=== PATIENT | female | born 1970 | race Caucasian/White ===

== ENCOUNTER 2016-12-11 19:37 | Emergency (ER) | payer SELFPAY | END 2016-12-11 21:13 | disposition home or self-care (01) | LOC: D.ER 19:37 | DX: E11.65 Type 2 diabetes mellitus with hyperglycemia (principal) ==

== ENCOUNTER 2017-04-17 23:48 | Emergency (ER) | payer SELFPAY | END 2017-04-18 01:45 | disposition home or self-care (01) | LOC: D.ER 23:48 | DX: G89.18 Other acute postprocedural pain (principal); E11.9 Type 2 diabetes mellitus without complications; F17.200 Nicotine dependence, unspecified, uncomplicated ==

== ENCOUNTER 2017-04-22 12:30 | Emergency (ER) | payer OTHER ==
[2017-04-22 14:07] LABS: BASOPHILS 0.4 % (0-2); EOSINOPHILS 6.1 % (0-7); HEMATOCRIT 41.3 % (36.0-48.0); HEMOGLOBIN 14.4 g/dL (12-16); IMMATURE GRANULOCYTES 0.3 % (0-5); LYMPHOCYTES 41.6 % (15-50); MCH 31.4 pg (26.0-34.0); MCHC 34.9 g/dL (31.0-37.0); MEAN PLATELET VOLUME 10.7 fL (7.4-10.4); MONOCYTES 7.7 % (2-11); NEUTROPHILS 43.9 % (40-80); PLATELET COUNT 142 10x3/uL (130-400); RBC 4.59 10x6/uL (4.00-5.40); RDW 12.2 % (11.5-14.5); WBC 7.2 10x3/uL (4.8-10.8)
[2017-04-22 14:22] LABS: ALBUMIN 3.3 g/dL (3.4-5.0); ALKALINE PHOSPHATASE 106 U/L (46-116); ALT (SGPT) 228 U/L (10-68); BILIRUBIN - TOTAL 0.27 mg/dL (0.2-1.3); CALC OSMOLALITY 278 mosm/kg (275-300); CALCIUM 9.3 mg/dL (8.5-10.1); CARBON DIOXIDE 26.9 mmol/L (21.0-32.0); CHLORIDE - SERUM 102 mmol/L (98-107); CREATININE - SERUM 0.8 mg/dL (0.6-1.3); GLUCOSE 187 mg/dL (74-106); POTASSIUM - SERUM 4.4 mmol/L (3.5-5.1); PROTEIN - SERUM 7.5 g/dL (6.4-8.2); SODIUM 137 mmol/L (136-145); UREA NITROGEN 13 mg/dL (7-18); eGFR NON AFRICAN AMERICAN 81 mL/min (90-120)
[2017-04-22 14:33] LABS: APTT 32.9 SECONDS (22.8-39.4); INR 0.94 (0.85-1.17); PROTIME 12.4 SECONDS (11.6-15.0)
[2017-04-22 14:44] LABS: APPEARANCE CLEAR (CLEAR); COLOR YELLOW (YELLOW); GLUCOSE 100 mg/dL (NEGATIVE); KETONE NEGATIVE (NEGATIVE); NITRITE NEGATIVE (NEGATIVE); PROTEIN NEGATIVE (NEGATIVE); UROBILINOGEN NORMAL (NORMAL)
[2017-04-22 14:45] LABS: BILIRUBIN NEGATIVE (NEGATIVE)
[2017-04-22 14:52] LABS: HCG URINE NEGATIVE (NEGATIVE)
== END 2017-04-22 17:48 | disposition home or self-care (01) ==
LOC: D.ER 12:30
PROVIDERS: Emergency Medicine
DX: J20.9 Acute bronchitis, unspecified (principal); R06.00 Dyspnea, unspecified; F17.200 Nicotine dependence, unspecified, uncomplicated

== ENCOUNTER 2017-06-26 19:23 | Emergency (ER) | payer OTHER | END 2017-06-26 20:35 | disposition home or self-care (01) | LOC: D.ER 19:23 | DX: B34.9 Viral infection, unspecified (principal); E11.9 Type 2 diabetes mellitus without complications; F17.200 Nicotine dependence, unspecified, uncomplicated ==

== ENCOUNTER 2017-09-16 06:40 | Day surgery (SDC) | payer OTHER ==
[2017-09-15 11:17] LABS: ALBUMIN 3.9 g/dL (3.4-5.0); ANION GAP 14.3 mmol/L (8-16); BILIRUBIN - TOTAL 0.3 mg/dL (0.2-1.3); CALCIUM 9.2 mg/dL (8.5-10.1); CARBON DIOXIDE 26.7 mmol/L (21.0-32.0); CREATININE - SERUM 0.9 mg/dL (0.6-1.3); HEMATOCRIT 44.4 % (36.0-48.0); HEMOGLOBIN 15.4 g/dL (12-16); MCH 31.3 pg (26.0-34.0); MCHC 34.7 g/dL (31.0-37.0); MCV 90.2 fL (80.0-100.0); MEAN PLATELET VOLUME 9.9 fL (7.4-10.4); PROTEIN - SERUM 8.7 g/dL (6.4-8.2); RBC 4.92 10x6/uL (4.00-5.40); RDW 12.6 % (11.5-14.5); WBC 8.2 10x3/uL (4.8-10.8)
[2017-09-15 11:25] LABS: APTT 32.7 SECONDS (22.8-39.4); INR 1.07 (0.85-1.17); PROTIME 13.5 SECONDS (11.6-15.0)
[~2017-09-16] VITALS: Ht 165.1 cm; Wt 86.2 kg
--- NOTE | ~2017-09-16 | OP ---
PATIENT NAME: MARIAM POLLOCK MEDICAL RECORD: [id number] :66 LOCATION:D.OPS ADMISSION DATE: SURGEON: DIPAK TRACY MD DATE OF OPERATION: 09/16/2017 PREOPERATIVE DIAGNOSIS: Lateral meniscus tear with patellofemoral syndrome of the right knee. POSTOPERATIVE DIAGNOSIS: Lateral meniscus tear with patellofemoral syndrome of the right knee. PROCEDURE: 1. Arthroscopic partial lateral meniscectomy. 2. Arthroscopic lateral release. SURGEON: Dipak Tracy MD ANESTHESIA: General. INTRAOPERATIVE COMPLICATIONS: None. SUMMARY OF PATHOLOGIC FINDINGS: The patient had a small tear of the lateral meniscus, can be certain that this was causing the patient's large lateral gastroc cyst that was planned for resection day; however, it ruptured in the preoperative period and the gastroc defamation essentially normalized. Therefore, we proceeded with the scope with a lateral release and partial lateral meniscectomy. OPERATIVE SUMMARY IN DETAIL: After obtaining the appropriate preoperative orthopedic surgery consent as well as anesthetic consultation, evaluation and clearance, the patient was brought to the operating room and placed on the operating table in supine position. After general laryngeal mask airway was administered, tourniquet was placed about the proximal aspect of the right lower extremity. Right lower extremity was then prepped and draped in a routine sterile fashion. The leg was elevated and exsanguinated, tourniquet was inflated to 350 mmHg. Routine inferolateral portal was established followed by superomedial portal and inferomedial portal. Diagnostic arthroscopy revealed the above findings. 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 Leg was placed in a [id number] position. Arthroscopic resector was utilized to remove the small radial oblique tear. The meniscus was probed and found to be stable. Attention was then turned to the patellofemoral joint. A hook tip Nunn tissue ablation system was utilized to release the lateral retinaculum from just inferior to the vastus lateralis to the inferior lateral portal. Having completed this, the knee was insufflated with 30 cc of 0.25% Marcaine with epinephrine and 40 mg of Depo-Medrol. Arthroscopy portals were closed in routine interrupted fashion using 4-0 Prolene. Sterile dressings were applied. The patient was awakened and taken to the recovery room in stable condition. All final needle and sponge counts were correct. TRANSINT:[id number] Voice Confirmation ID: [id number] DOCUMENT ID: [id number] OPERATIVE REPORT [id number] MARIAM POLLOCK MD, DIPAK BARRERA at 1401 CC: [id number] DICTATION DATE: 09/16/17 1024 CANCER GENETIC COUNSELOR: 09/16/17 1043 [facility] [place] [id number] [place] [id number]
[~2017-09-16 06:40] MED LIST: GLUCOPHAGE500 MG PO; HYDROCODONE-APA1 TAB PO
[2017-09-16 08:02] VITALS: BP 106/51; Ht 165.1 cm; Wt 86.2 kg
[2017-09-16] MEDS ORDERED: HYDROCODONE-APA1 TAB PO (10:21)
== END 2017-09-16 12:10 ==
LOC: D.OPS 06:40 → D.PAN 13:30 → D.OPS 13:30
PROVIDERS: Anesthesiology
DX: S83.281A Other tear of lateral meniscus, current injury, right knee, initial encounter (principal); M22.2X1 Patellofemoral disorders, right knee; F17.200 Nicotine dependence, unspecified, uncomplicated; E11.9 Type 2 diabetes mellitus without complications; Z01.812 Encounter for preprocedural laboratory examination

== ENCOUNTER 2017-10-08 09:49 | Day surgery (SDC) | payer OTHER ==
[~2017-10-08] VITALS: Ht 165.1 cm; Wt 86.2 kg
--- NOTE | ~2017-10-08 | OP ---
PATIENT NAME: MARIAM POLLOCK MEDICAL RECORD: [id number] :66 LOCATION:D.OPS ADMISSION DATE: SURGEON: DIPAK TRACY MD DATE OF OPERATION: 10/08/2017 PREOPERATIVE DIAGNOSIS: Parameniscal cyst of the right knee. POSTOPERATIVE DIAGNOSIS: Parameniscal cyst of the right knee. PROCEDURES: 1. Right knee arthroscopy. 2. Excision of parameniscal cyst. SURGEON: Dipak Tracy MD ANESTHESIA: General. INTRAOPERATIVE COMPLICATIONS: None. SUMMARY OF PATHOLOGIC FINDINGS: The patient had previously ruptured the cyst that returned. Arthroscopy was to establish that the previously seen meniscal tear was no longer prevalent. After arthroscopy, open incision of the parameniscal cyst on the posterior aspect of the head of the fibula was done. OPERATIVE SUMMARY IN DETAIL: After obtaining the appropriate preoperative orthopedic surgery consent as well as anesthetic consultation, evaluation, and clearance, the patient was brought to the operating room and placed on the operating table in supine position. After adequate general laryngeal mask airway was administered, tourniquet was placed about the proximal aspect of the right lower extremity. Right lower extremity was prepped and draped in routine sterile fashion. Leg was elevated, exsanguinated and tourniquet was inflated to 350 mmHg. Routine inferolateral portal was established followed by superior medial portal and inferomedial portal. Diagnostic arthroscopy of the right knee where prior partial meniscectomy had been achieved. At this point, arthroscopy was terminated. A small incision was made over the proximal aspect of the lateral portion of the gastroc. Care was taken to avoid the peroneal nerve. Dissection was gently carried down to the posterior aspect of the fibula where the cyst was seen on MRI. Cyst was identified. Dissection was carried out around the cyst. Ultimately, the cyst was drained and the cyst capsule was removed. Having completed this, the wound was irrigated and closed with #1 Vicryl, 2-0 Vicryl, and 4-0 Prolene. The arthroscopic portals were likewise closed with 4-0 Prolene. Sterile dressings were applied. Tourniquet was deflated. The patient was awakened and taken to recovery in stable condition. All final needle and sponge counts were correct. TRANSINT:[id number] Voice Confirmation ID: [id number] DOCUMENT ID: [id number] OPERATIVE REPORT [id number] ADEN MD, DIPAK BARRERA at 1019 CC: [id number] DICTATION DATE: 11/05/17823 DRIER: 11/05/17 1440 [facility] 10/08/17 [place] [id number] [place] [id number]
[2017-10-08 10:52] VITALS: BP 101/52; Ht 165.1 cm; Wt 86.2 kg
[2017-10-08 11:30] LABS: HEMATOCRIT 41.3 % (36.0-48.0); HEMOGLOBIN 14.7 g/dL (12-16); MCH 31.6 pg (26.0-34.0); MCHC 35.6 g/dL (31.0-37.0); MCV 88.8 fL (80.0-100.0); MEAN PLATELET VOLUME 10.7 fL (7.4-10.4); RBC 4.65 10x6/uL (4.00-5.40); RDW 12.5 % (11.5-14.5); WBC 7.9 10x3/uL (4.8-10.8)
[2017-10-08 11:39] LABS: CALC OSMOLALITY 274 mosm/kg (275-300); CALCIUM 9.2 mg/dL (8.5-10.1); CARBON DIOXIDE 27.9 mmol/L (21.0-32.0); CHLORIDE - SERUM 102 mmol/L (98-107); CREATININE - SERUM 0.7 mg/dL (0.6-1.3); GLUCOSE 155 mg/dL (74-106); POTASSIUM - SERUM 5.3 mmol/L (3.5-5.1); SODIUM 135 mmol/L (136-145); UREA NITROGEN 18 mg/dL (7-18); eGFR NON AFRICAN AMERICAN > 90 mL/min (90-120)
[2017-10-08] MEDS ORDERED: HYDROCODONE-APA1 TAB PO (15:15)
== END 2017-10-08 16:45 | disposition home or self-care (01) ==
LOC: D.OPS 09:49 → D.PAN 14:45 → D.OPS 16:45
PROVIDERS: Anesthesiology
DX: M67.40 Ganglion, unspecified site (principal); M22.2X9 Patellofemoral disorders, unspecified knee; M25.561 Pain in right knee; F17.200 Nicotine dependence, unspecified, uncomplicated; E11.9 Type 2 diabetes mellitus without complications; Z01.812 Encounter for preprocedural laboratory examination

== ENCOUNTER → 2018-02-08 16:01 | Outpatient (CLI) | payer OTHER ==
[2017-10-08 10:52] VITALS: BMI 31.6
== END | disposition home or self-care (01) ==
LOC: D.MRI 16:01
DX: R22.41 Localized swelling, mass and lump, right lower limb (principal)

== ENCOUNTER 2018-02-22 10:40 | Day surgery (SDC) | payer OTHER ==
[~2018-02-22] VITALS: Ht 165.1 cm; Wt 91.6 kg
--- NOTE | ~2018-02-22 | OP ---
PATIENT NAME: MARIAM POLLOCK MEDICAL RECORD: [id number] :66 LOCATION:D.OPS ADMISSION DATE: SURGEON: DIPAK TRACY MD DATE OF OPERATION: 02/22/2018 PREOPERATIVE DIAGNOSIS: Recurrent meniscal cyst of the right knee. POSTOPERATIVE DIAGNOSES: Recurrent meniscal cyst of the right knee, lateral meniscus tear. PROCEDURE: 1. Open removal of lateral parameniscal cyst. 2. Right knee arthroscopy with arthroscopic partial lateral meniscectomy. SURGEON: Dipak Tracy MD ANESTHESIA: General. INTRAOPERATIVE COMPLICATIONS: None. SUMMARY OF PATHOLOGIC FINDINGS: Although the patient had a previous cyst, it was underneath the fibula more distally. This cyst seemed to arise directly from the lateral joint line and upon dissection, it had a small stalk and at this arthroscopy, the patient did have a small lateral meniscus tear. OPERATIVE SUMMARY IN DETAIL: After obtaining the appropriate preoperative orthopedic surgery consent as well as anesthetic consultation, evaluation, and clearance, the patient was brought to the operating room and placed in the operating table in supine position. After adequate general laryngeal mask airway was administered, tourniquet was placed about the proximal aspect of the right lower extremity. Right lower extremity was then prepped and draped in routine sterile fashion. The leg was elevated and exsanguinated, tourniquet inflated to 350 mmHg. Care was taken to not rupture the meniscal cyst with exsanguination. A small incision was made over the lateral joint line in line with the lateral joint line, taken down to the parameniscal cyst, which was dissected free and the small stalk was seen and evaluated. The meniscal cyst was removed and sent for permanent pathology. At this point, arthroscopy was established in the knee. Ironically, there was no flow through even under pressure. However, the patient was seen to have a lateral meniscus tear undersurface. This was debrided with the meniscal resector, but the lateral meniscus was stable. Having completed this, #1 Vicryl was used to oversew the stalk of the meniscal repair on the lateral capsule. Having completed this, arthroscopy portals were closed in routine interrupted fashion. Please note, the knee was insufflated with 30 cc of 0.25% Marcaine with epinephrine and 40 mg of Depo-Medrol. Arthroscopy portals having been closed, sterile dressings were applied. Tourniquet was deflated. The patient was awakened and taken to the recovery room in stable condition. All final needle and sponge counts were correct. TRANSINT:[id number] Voice Confirmation ID: [id number] DOCUMENT ID: [id number] OPERATIVE REPORT [id number] MARIAM POLLOCK MD, DIPAK BARRERA at 1358 CC: [id number] DICTATION DATE: 02/23/18 09 CASH CONTROLLER: 02/23/18 1146 [facility] 02/22/[address] [address]
[2018-02-22 11:44] LABS: HEMATOCRIT 43.9 % (36.0-48.0); HEMOGLOBIN 15.3 g/dL (12-16); MCH 31.8 pg (26.0-34.0); MCHC 34.9 g/dL (31.0-37.0); MCV 91.3 fL (80.0-100.0); MEAN PLATELET VOLUME 11.2 fL (7.4-10.4); RBC 4.81 10x6/uL (4.00-5.40); WBC 8.8 10x3/uL (4.8-10.8)
[2018-02-22 12:11] LABS: CALC OSMOLALITY 272 mosm/kg (275-300); CALCIUM 8.7 mg/dL (8.5-10.1); CARBON DIOXIDE 28.5 mmol/L (21.0-32.0); CHLORIDE - SERUM 102 mmol/L (98-107); CREATININE - SERUM 0.8 mg/dL (0.6-1.3); GLUCOSE 112 mg/dL (74-106); POTASSIUM - SERUM 4.8 mmol/L (3.5-5.1); SODIUM 136 mmol/L (136-145); UREA NITROGEN 12 mg/dL (7-18); eGFR NON AFRICAN AMERICAN 81 mL/min (90-120)
[2018-02-22 12:28] VITALS: BP 104/63; Ht 165.1 cm; Wt 91.6 kg
[2018-02-22] MEDS ORDERED: HYDROCODONE-APA1 TAB PO (17:09)
== END 2018-02-22 18:20 | disposition home or self-care (01) ==
LOC: D.OPS 10:40 → D.PAN 13:00 → D.OPS 18:20
PROVIDERS: Anesthesiology
DX: M23.061 Cystic meniscus, other lateral meniscus, right knee (principal); S83.281A Other tear of lateral meniscus, current injury, right knee, initial encounter; Z01.812 Encounter for preprocedural laboratory examination

== ENCOUNTER 2018-07-07 14:09 | Emergency (ER) | payer OTHER ==
[~2018-07-07] VITALS: Ht 165.1 cm; Wt 88.2 kg
[2018-07-07 14:25] VITALS: Ht 165.1 cm; Wt 88.2 kg
[2018-07-07] MEDS ORDERED: PRAVACHOL20 MG PO (14:27)
[2018-07-07 15:02] LABS: BASOPHILS 0.4 % (0-2); EOSINOPHILS 2.5 % (0-7); HEMATOCRIT 44.3 % (36.0-48.0); HEMOGLOBIN 15.5 g/dL (12-16); IMMATURE GRANULOCYTES 0.3 % (0-5); LYMPHOCYTES 39.1 % (15-50); MCH 32.1 pg (26.0-34.0); MCV 91.7 fL (80.0-100.0); MEAN PLATELET VOLUME 10.1 fL (7.4-10.4); MONOCYTES 7.6 % (2-11); NEUTROPHILS 50.1 % (40-80); PLATELET COUNT 171 10x3/uL (130-400); RBC 4.83 10x6/uL (4.00-5.40); RDW 12.9 % (11.5-14.5); WBC 9.1 10x3/uL (4.8-10.8)
[2018-07-07 15:32] LABS: ALBUMIN 3.8 g/dL (3.4-5.0); ALKALINE PHOSPHATASE 76 U/L (46-116); ALT (SGPT) 26 U/L (10-68); BILIRUBIN - TOTAL 0.38 mg/dL (0.2-1.3); CALC OSMOLALITY 277 mosm/kg (275-300); CARBON DIOXIDE 22.8 mmol/L (21.0-32.0); CHLORIDE - SERUM 102 mmol/L (98-107); CREATININE - SERUM 0.8 mg/dL (0.6-1.3); GLUCOSE 133 mg/dL (74-106); POTASSIUM - SERUM 4.1 mmol/L (3.5-5.1); PROTEIN - SERUM 8.1 g/dL (6.4-8.2); SODIUM 137 mmol/L (136-145); UREA NITROGEN 19 mg/dL (7-18); eGFR NON AFRICAN AMERICAN 81 mL/min (90-120)
[2018-07-07 15:37] LABS: CKMB 0.3 U/L (0.0-3.6); CREATINE KINASE 70 UL (21-215); MAGNESIUM - SERUM 2.1 mg/dL (1.8-2.4)
[2018-07-07 15:41] LABS: TROPONIN-I < 0.017 ng/mL (0.000-0.060)
[2018-07-07 15:46] LABS: APTT 29.6 SECONDS (22.8-39.4); INR 1.02 (0.85-1.17); PROTIME 12.9 SECONDS (11.6-15.0)
[2018-07-07 15:47] LABS: D-DIMER-QUANTITATIVE < 0.27 ug/mLFEU (0.20-0.54)
[2018-07-07] MEDS ORDERED: NORCO 7.5/325 T1 TA1 PO (18:25)
[2018-07-07 18:47] VITALS: BP 128/82
== END 2018-07-07 18:48 | disposition home or self-care (01) ==
LOC: D.ER 14:09
PROVIDERS: Family Medicine
DX: R07.81 Pleurodynia (principal); E11.9 Type 2 diabetes mellitus without complications; Z86.19 Personal history of other infectious and parasitic diseases; F17.200 Nicotine dependence, unspecified, uncomplicated

== ENCOUNTER 2019-06-20 05:30 | Day surgery (SDC) | payer BC ==
[2019-06-17 09:54] LABS: ANION GAP 13.2 mmol/L (8-16); CALCIUM 9.2 mg/dL (8.5-10.1); CARBON DIOXIDE 24.2 mmol/L (21.0-32.0); POTASSIUM - SERUM 4.4 mmol/L (3.5-5.1)
[2019-06-17 10:56] LABS: HEMATOCRIT 45.7 % (36.0-48.0); HEMOGLOBIN 15.8 g/dL (12-16); MCH 32.5 pg (26.0-34.0); MCHC 34.6 g/dL (31.0-37.0); MEAN PLATELET VOLUME 10.8 fL (7.4-10.4); RBC 4.86 10x6/uL (4.00-5.40); RDW 12.8 % (11.5-14.5); WBC 8.1 10x3/uL (4.8-10.8)
[~2019-06-20] VITALS: Ht 165.1 cm; Wt 86.2 kg
[~2019-06-20 05:30] MED LIST changes: +NORCO 7.5/325 T1 TA1 PO; +PRAVACHOL20 MG PO
[2019-06-20 06:36] VITALS: BP 110/70; Ht 165.1 cm; Wt 86.2 kg
[2019-06-20] MEDS ORDERED: DILAUDID2 MG PO (08:26)
--- NOTE | 2019-06-20 09:19 | NUR ---
0915 [facility] AT [facility] DIET SERVED.
--- NOTE | 2019-06-20 14:02 | OP ---
PATIENT NAME: MARIAM WOOTEN MEDICAL RECORD: [id number] :66 LOCATION:D.OPS ADMISSION DATE: SURGEON: DIPAK TRACY MD DATE OF OPERATION: 06/20/2019 PREOPERATIVE DIAGNOSIS: 1. 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 2. Trigger thumb of the left upper extremity. POSTOPERATIVE DIAGNOSES: 1. 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 2. Trigger thumb of the left upper extremity. PROCEDURES: 1. De Quervain release, left wrist. 2. Left trigger thumb release. SURGEON: Dipak Tracy MD ANESTHESIA: General. INTRAOPERATIVE COMPLICATIONS: None. SUMMARY OF PATHOLOGIC FINDINGS: The patient did have on both locations tight extensor retinaculum and flexor retinaculum respectively. A nodularity was found in the thumb tendon, but no tearing. Synovitis was found in the de Quervain stenosing site. OPERATIVE SUMMARY IN DETAIL: After obtaining the appropriate preoperative orthopedic surgery consent as well as anesthetic consultation, evaluation and clearance, the patient was brought to the operating room and placed on the operating table in supine position. After adequate general laryngeal mask airway was administered, tourniquet was placed in the proximal aspect of the left upper extremity. Left upper extremity was then prepped and draped in routine sterile fashion. At this point, the appropriate timeout was taken and agreed upon by all. Arm was elevated and exsanguinated. Tourniquet was inflated to 250 mmHg. An incision was made first over the radial styloid, taken down to the level of the extensor retinaculum over the radial styloid, supraspinatus. The radial nerve was identified and protected. The incision was then made along the compartment and it was released in its entirety. Synovitis was noted and gently excised. Attention was at this point turned to the base of the left thumb. A small incision was made over the bonita. Digital nerves were protected and the A1 bonita was released in its entirety. At this point, the wounds were closed by Cipriano damian using Prolene in a simple interrupted fashion. The areas were both infiltrated with 0.25% Marcaine plain. Sterile dressings were applied. Tourniquet was deflated. The patient was awakened and taken to recovery room in stable condition. All final needle and sponge counts were correct. TRANSINT:[id number] Voice Confirmation ID: [id number] DOCUMENT ID: [id number] OPERATIVE REPORT [id number] MARIAM WOOTEN MD, DIPAK BARRERA at 1402 CC: [id number] DICTATION DATE: 06/20/19828 PROFILING MACHINE OPERATOR: 06/20/19 1132 [facility] 06/20/19 [place] [id number]
== END 2019-06-20 10:15 | disposition home or self-care (01) ==
LOC: D.OPS 05:30 → D.PAN 07:30 → D.OPS 07:30
PROVIDERS: Anesthesiology; ATTEND Orthopaedic Surgery
DX: M65.4 Radial styloid tenosynovitis [de Quervain] (principal); M65.312 Trigger thumb, left thumb

== ENCOUNTER 2020-02-03 10:10 | Emergency (ER) | payer OTHER ==
[~2020-02-03] VITALS: Ht 165.1 cm; Wt 93.6 kg
[~2020-02-03 10:10] MED LIST changes: +DILAUDID2 MG PO
[2020-02-03 10:19] VITALS: Ht 165.1 cm; Wt 93.6 kg
[2020-02-03 10:36] LABS: BASOPHILS 0.3 % (0-2); EOSINOPHILS 1.8 % (0-7); HEMATOCRIT 47.5 % (36.0-48.0); HEMOGLOBIN 16.2 g/dL (12-16); IMMATURE GRANULOCYTES 0.2 % (0-5); LYMPHOCYTES 28.5 % (15-50); MCHC 34.1 g/dL (31.0-37.0); MCV 93.9 fL (80.0-100.0); MEAN PLATELET VOLUME 10.2 fL (7.4-10.4); MONOCYTES 5.5 % (2-11); NEUTROPHILS 63.7 % (40-80); PLATELET COUNT 180 10x3/uL (130-400); RBC 5.06 10x6/uL (4.00-5.40); RDW 12.4 % (11.5-14.5)
[2020-02-03 10:44] LABS: CALC OSMOLALITY 281 mosm/kg (275-300); CALCIUM 9.1 mg/dL (8.5-10.1); CARBON DIOXIDE 30.9 mmol/L (21.0-32.0); CHLORIDE - SERUM 101 mmol/L (98-107); GLUCOSE 129 mg/dL (74-106); POTASSIUM - SERUM 4.7 mmol/L (3.5-5.1); SODIUM 139 mmol/L (136-145); UREA NITROGEN 19 mg/dL (7-18); eGFR NON AFRICAN AMERICAN 62 mL/min (90-120)
[2020-02-03 10:45] LABS: BILIRUBIN NEGATIVE (NEGATIVE); GLUCOSE NEGATIVE (NEGATIVE); KETONE NEGATIVE (NEGATIVE); NITRITE NEGATIVE (NEGATIVE); UROBILINOGEN NORMAL (NORMAL)
[2020-02-03 10:51] LABS: ALBUMIN 4.4 g/dL (3.4-5.0); ALKALINE PHOSPHATASE 69 U/L (30-120); ALT (SGPT) 74 U/L (10-68); BILIRUBIN - TOTAL 0.65 mg/dL (0.2-1.3); PROTEIN - SERUM 8.5 g/dL (6.4-8.2)
[2020-02-03 11:07] LABS: AMYLASE - SERUM 75 U/L (25-115); LIPASE 214 U/L (73-393); TROPONIN-I < 0.017 ng/mL (0.000-0.060)
[2020-02-03] MEDS ORDERED: BENTYL 20 MG TA20 MG PO (12:34)
[2020-02-03] MEDS ORDERED: ZOFRAN ODT4 MG/UDTAB PO (12:34)
[2020-02-03 12:58] VITALS: BP 130/76
== END 2020-02-03 12:59 | disposition home or self-care (01) ==
LOC: D.ER 10:10
PROVIDERS: Emergency Medicine
DX: R10.9 Unspecified abdominal pain (principal); R19.7 Diarrhea, unspecified; R11.2 Nausea with vomiting, unspecified; E11.9 Type 2 diabetes mellitus without complications; Z79.84 Long term (current) use of oral hypoglycemic drugs; R51 Headache